=== PATIENT | female | born 1985 | race African-American/Black ===

== ENCOUNTER 2020-01-31 04:59 | Emergency (ER) | payer OTHER ==
--- NOTE | 2020-01-31 05:13 | EDM.PDOC ---
ED HPI GENERAL MEDICAL PROBLEM - General Chief Complaint: Lower Extremity Injury/Pain Stated Complaint: RIGHT NEWBY PAIN Time Seen by Provider: 01/31/20 05:05 Source of Information: Reports: Patient History Limitations: Reports: No Limitations - History of Present Illness INITIAL COMMENTS - FREE TEXT/NARRATIVE: Pt presents to ER after hitting right anterior newby against a metal object Is able to ambulate and weight bear No open areas Onset: Today, Sudden Duration: Hour(s): Location: Reports: Lower Extremity, Right Severity: Moderate Worsens with: Reports: Other (palpation) Context: Reports: Trauma Right Lower Anterior Leg Pain Score (Numeric/FACES): 8 - Related Data Allergies Allergy/AdvReac Type Severity Reaction Status Date / Time No Known Allergies Allergy Verified 01/31/20 05:08 Home Meds: Home Meds Multivitamin [Multivitamins] 1 each PO DAILY 01/31/20 [History] Review of Systems - Review of Systems Review Of Systems: See Below Musculoskeletal: Reports: Leg Pain ED EXAM, GENERAL - Physical Exam Exam: See Below Extremities: Other (Right lower anterior newby tender with palpation No swelling No ecchymosis No open areas) Course - Vital Signs Last Recorded V/S: Last Vital Signs Temp 97.5 F 01/31/20 05:00 Pulse 61 01/31/20 05:00 Resp 20 01/31/20 05:00 BP 119/86 01/31/20 05:00 Pulse Ox 98 01/31/20 05:00 - Re-Assessments/Exams Free Text/Narrative Re-Assessment/Exam: 01/31/20 05:11 Pt stable in ER Departure - Departure Time of Disposition: 05:15 Disposition: Home, Self-Care 01 Clinical Impression: Contusion of leg, right Qualifiers: Encounter type: initial encounter Qualified Code(s): S80.11XA - Contusion of right lower leg, initial encounter - Discharge Information *PRESCRIPTION DRUG MONITORING PROGRAM REVIEWED*: Not Applicable *COPY OF PRESCRIPTION DRUG MONITORING REPORT IN PATIENT JOE: Not Applicable Instructions: Contusion, [id number] Additional Instructions: Ice as needed Tylenol or Motrin as needed Follow up in clinic Sepsis Event Note (ED) - Evaluation Sepsis Screening Result: No Definite Risk - Focused Exam Vital Signs: Vital Signs Temp Pulse Resp BP Pulse Ox 01/31/20 05:00 97.5 F 61 20 119/86 98
== END 2020-01-31 05:50 | disposition home or self-care (01) ==
LOC: LL.ED 04:59
DX: S80.11XA Contusion of right lower leg, initial encounter (principal); Z79.899 Other long term (current) drug therapy; W22.8XXA Striking against or struck by other objects, initial encounter
CPT/HCPCS: 99283

== ENCOUNTER 2020-11-14 01:27 | Emergency (ER) | payer OTHER ==
[2020-11-14] MEDS ORDERED: Bupivacaine 0.5% 10 ML SDV INJECT ONE (02:18)
--- NOTE | 2020-11-14 02:18 | EDM.PDOC ---
ED HPI GENERAL MEDICAL PROBLEM - General Chief Complaint: Upper Extremity Injury/Pain Stated Complaint: left index finger injury Time Seen by Provider: 11/14/20 02:00 Source of Information: Reports: Patient History Limitations: Reports: No Limitations - History of Present Illness INITIAL COMMENTS - FREE TEXT/NARRATIVE: Left index finger pinched by equipment while working at [employer]. Pain in distal finger. No loss of function. No other injury. Left Finger-Index Pain Score (Numeric/FACES): 10 - Related Data Allergies Allergy/AdvReac Type Severity Reaction Status Date / Time No Known Allergies Allergy Verified 11/14/20 01:28 Home Meds: Home Meds Multivitamin [Multivitamins] 1 each PO DAILY 01/31/20 [History] Past Medical History - Past Health History Medical/Surgical History: Denies Medical/Surgical History - Infectious Disease History Infectious Disease History: Reports: Chicken Pox Social & Family History - Tobacco Use Tobacco Use Status *Q: Never Tobacco User Second Hand Smoke Exposure: No - Caffeine Use Caffeine Use: Reports: Coffee, Soda - Recreational Drug Use Recreational Drug Use: No Review of Systems - Review of Systems Review Of Systems: See Below Musculoskeletal: Reports: Other (left index finger pain) Skin: Reports: Bruising (under nail left index finger) Neurological: Reports: No Symptoms ED EXAM, GENERAL - Physical Exam Exam: See Below Exam Limited By: No Limitations General Appearance: Alert, Mild Distress Eye Exam: Bilateral Eye: EOMI, PERRL Throat/Mouth: Normal Voice, No Airway Compromise Head: Atraumatic, Normocephalic Neck: Supple Respiratory/Chest: No Respiratory Distress Extremities: Normal Range of Motion, Normal Capillary Refill, Other (Tender with palpation of left index finger/distally. Bruising under nail noted. ) Neurological: Alert, Oriented, Normal Cognition Psychiatric: Anxious Skin Exam: Intact Course - Vital Signs Last Recorded V/S: Last Vital Signs Temp 36.9 C 11/14/20 01:27 Pulse 87 11/14/20 01:27 Resp 18 11/14/20 01:27 BP 119/84 11/14/20 01:27 Pulse Ox 99 11/14/20 01:27 - Orders/Labs/Meds Orders: Active Orders 24 hr Category Date Time Status Fingers Second Digit Lt F1 [CR] Stat Exams 11/14/20 01:36 Taken Meds: Medications Discontinued Medications Generic Name Dose Route Start Last Admin Trade Name Freq PRN Reason Stop Dose Admin Bupivacaine HCl 10 ml 11/14/20 02:18 11/14/20 02:21 Bupivacaine 0.5% 10 Ml Sdv INJECT 11/14/20 02:19 9 ml ONETIME ONE Administration Lidocaine HCl 5 ml 11/14/20 02:12 11/14/20 02:21 Lidocaine 1% 5 Ml Sdv INJECT 11/14/20 02:13 1 ml ONETIME ONE Administration - Re-Assessments/Exams Free Text/Narrative Re-Assessment/Exam: 11/14/20 02:17 Xray confirmed fracture of distal phalanx left index finger. Digital block performed using mixture of 90% Marcaine 0.5% and 10% Lidocaine 1%. 2.5cc each side of finger. Small hole made in nail using cautery to see if there was developing subungual hematoma that would benefit from drainage. Bandage applied. Prefab splint applied to protect finger. Work note/restrictions given to patient. To follow up next week with her PCP for recheck and further restrictions as needed. Departure - Departure Time of Disposition: 02:36 Disposition: Home, Self-Care 01 Condition: Good Clinical Impression: Fracture of distal phalanx of left index finger Qualifiers: Encounter type: initial encounter Fracture type: closed Fracture alignment: displaced Qualified Code(s): S62.631A - Displaced fracture of distal phalanx of left index finger, initial encounter for closed fracture - Discharge Information *PRESCRIPTION DRUG MONITORING PROGRAM REVIEWED*: Not Applicable *COPY OF PRESCRIPTION DRUG MONITORING REPORT IN PATIENT JOE: Not Applicable Instructions: Finger Fracture, Adult, [id number] Forms: ED Department Discharge Additional Instructions: Wear splint for protection and comfort. Keep clean if blood drains from small hole in finger nail. OK to take Tylenol or Aleve or Motrin for pain as needed. Follow up with your doctor next Wednesday or for recheck and further restrictions if needed. Follow up otherwise as needed. Sepsis Event Note (ED) - Evaluation Sepsis Screening Result: No Definite Risk - Focused Exam Vital Signs: Vital Signs Temp Pulse Resp BP Pulse Ox 11/14/20 01:27 36.9 C 87 18 119/84 99 - My Orders Last 24 Hours: My Active Orders 11/14/20 01:36 Fingers Second Digit Lt F1 [CR] Stat - Assessment/Plan Last 24 Hours: My Active Orders 11/14/20 01:36 Fingers Second Digit Lt F1 [CR] Stat
== END 2020-11-14 02:44 | disposition home or self-care (01) ==
LOC: LL.ED 01:27
DX: S62.631A Displaced fracture of distal phalanx of left index finger, initial encounter for closed fracture (principal); W23.0XXA Caught, crushed, jammed, or pinched between moving objects, initial encounter; Y92.89 Other specified places as the place of occurrence of the external cause; Y99.0 Civilian activity done for income or pay
CPT/HCPCS: 11740; 64450; 73140-F1; 99283; 99283-25; J3490